=== PATIENT | male | born 1950 | race Two or more races ===

== ENCOUNTER 2024-11-23 20:41 | Inpatient (IN) | payer OTHER ==
[~2024-11-23] VITALS: Ht 165.1 cm; Wt 70.8 kg
[2024-11-23] MEDS ORDERED: AVAPRO300 MG PO (21:12)
[2024-11-23] MEDS ORDERED: CARDURA1 MG PO (21:12)
[2024-11-23] MEDS ORDERED: AMBIEN CR12.5 MG PO (21:13)
[2024-11-23] MEDS ORDERED: SINEMET 10-1001 EACH PO (21:13)
[2024-11-23] MEDS ORDERED: PROTONIX40 MG PO (21:13)
[2024-11-23] MEDS ORDERED: PROZAC40 MG PO (21:13)
--- NOTE | 2024-11-23 21:16 | NUR ---
PTE ALERTA Y ORIENTADO X3 EN COMPANIA DE FAMILIAR QUIEN REFIRE TRAER A PT POR SOB,INAPETENCIA, DOLOR ABDOMINAL. SE OBSERVA ABDOMEN DISTENDIDO. SATURANDO 93% SE REALIZA EKG. FAMILIAR REFIERE PTE HABERSE CAIDO Y GOLPEADO LA FRENTE. NIEGA PERDIDA DE CONOCIMIENTO
[2024-11-23] MEDS ORDERED: PIPERACILLIN/TAZOBACTAM SODIUM 3.375 GM VIAL IV ONE ×2 (22:30→22:39)
[2024-11-23] MEDS ORDERED: 0.9 % SODIUM CHLORIDE 1,000 ML IV ONE (22:30)
[2024-11-23] MEDS ORDERED: LEVALBUTEROL HCL 1.25 MG/3 ML SOLUTION IH ONE (22:30)
[2024-11-23] MEDS ORDERED: PANTOPRAZOLE SODIUM 40 MG/VIAL VIAL IV ONE (22:30)
[2024-11-23 23:07] LABS: HEMATOCRIT 33.5 % (39.0-48.0); HEMOGLOBIN 11.8 g/dL (13-16.00); MEAN CORPUSCULAR HEMOGLOBIN 32.7 pg (27.00-32.0); MEAN CORPUSCULAR HGB CONC 35.2 g/dl (32.0-36.0); PLATELET COUNT 210 K/uL (150-450); RED CELL DISTRIBUTION WIDTH 13.9 % (11.5-14.5)
--- NOTE | 2024-11-23 23:15 | NUR ---
SE EJECUTAN ORDENES MEDICAS EN CASTRO TOTALIDAD
[2024-11-23 23:20] LABS: INR 1.1; PARTIAL THROMBOPLASTIN TIME 32.3 SECONDS (22.0-34.0); PROTHROMBIN TIME 11.9 SECONDS (9.0-11.5)
[2024-11-23 23:24] LABS: ALBUMIN 3.1 gm/dL (3.4-5.0); BILIRUBIN TOTAL 0.37 mg/dL (0.3-1.2); CALCIUM 8.1 mg/dL (8.5-10.1); CREATININE SERUM 1.45 mg/dL (0.70-1.30); GFR 47.57; GLOBULINA 3.4 G/DL (2.4-3.5); POTASSIUM 4.85 mEq/L (3.5-5.1); TOTAL PROTEIN 6.5 gm/dL (6.4-8.2)
[2024-11-23] MEDS ORDERED: LEVALBUTEROL HCL 0.63 MG/3 ML SOLUTION IH ONE (23:58)
--- NOTE | 2024-11-24 00:01 | NUR ---
SE NOTIFICAN ABG Y TERAPIAS RESP A MR JAMESON.
[2024-11-24 00:21] LABS: PH,URINE 6.5 (5.0-8.0); URINE APPEARANCE Turbid; URINE BILIRRUBIN Negative (NEGATIVE); URINE BLOOD Trace; URINE COLOR Yellow; URINE GLUCOSE Negative (NEGATIVE); URINE KETONE Trace (NEGATIVE); URINE LEUKOCYTE Large; URINE NITRATE Negative; URINE PROTEIN 30 (NEGATIVE); URINE UROBILINOGEN 0.2 E.U./dl
[2024-11-24 00:25] LABS: URINE BACTERIA 8110.1 uL (0.0-1933); URINE EPITHELIAL CELLS 2.8 uL (0.0-38.8); URINE RBC 19.7 uL (0.0-20.8)
[2024-11-24 01:02] LABS: URINE CAST 0.14 uL (0.0-1.40); URINE WBC > 5548.3 uL (0.0-23.2)
[2024-11-24 03:02] LABS: ABG PH 7.436 (7.35-7.45); ABG PO2 82.9 mmHg (80-100); ABG pCO2 38.4 mmHg (35-45)
[2024-11-24 03:03] LABS: BASE EXCESS 1.2 mmol/l; BICARBONATE 25.3 mmol/l (23-25); Tco2 26.4 mmol/l; allen test SATISFACTORY; o2 32 %; puncture site RADIAL RIGHT
[2024-11-24 03:04] LABS: SaO2 96.5 %
[2024-11-24] MEDS ORDERED: OSELTAMIVIR PHOSPHATE 6 MG/1 ML PO STA (04:06)
[2024-11-24] MEDS ORDERED: LEVALBUTEROL HCL 0.63 MG/3 ML SOLUTION IH STA (04:07)
[2024-11-24] MEDS ORDERED: GUAIFENESIN 200 MG/10 ML BLIST.PACK PO STA (04:07)
[2024-11-24] MEDS ORDERED: LEVALBUTEROL HCL 0.63 MG/3 ML SOLUTION IH ONE (05:20)
[2024-11-24] MEDS ORDERED: LEVALBUTEROL HCL 0.63 MG/3 ML SOLUTION IH SCH (06:00)
--- NOTE | 2024-11-24 07:55 | NUR ---
SE RECIBE PACIENTE MASCULINO ALERTA Y ORIENTADO X3, EN CAMA K7 CON BARANDAS ELEVADAS. AREA DE VENOPUNCION PATENTE KIMBERLY DE EDEMA Y ENROJECOMIENTO. PENDIETE LA CONSULTA CON LA . SE LE DELROY EN TODO MOMENTO PRICVACIDAD Y SEGURIDAD.
[2024-11-24] MEDS ORDERED: ALBUTEROL SULFATE 3 ML/2.5 MG AMPUL.NEB IH ONE (10:23)
[2024-11-24] MEDS ORDERED: ACETAMINOPHEN 160MG/5 ML BLIST.PACK PO ONE (10:31)
[2024-11-24] MEDS ORDERED: CEFTRIAXONE SODIUM 2,000 MG in DEXTROSE 5 % IN WATER 100 ML IV SCH (11:52)
[2024-11-24] MEDS ORDERED: AZITHROMYCIN 500 MG VIAL IV SCH (11:52)
[2024-11-24] MEDS ORDERED: GUAIFENESIN/DEXTROMETHORPHAN 100MG/10ML BLIST.PACK PO SCH (11:53)
[2024-11-24] MEDS ORDERED: METHYLPREDNISOLONE SOD SUCC 40 MG VIAL IV SCH (11:54)
[2024-11-24] MEDS ORDERED: PATIENTS OWN MEDICATION (MEDICAMENTO EN PISO) PO SCH (11:56)
[2024-11-24] MEDS ORDERED: 0.9 % SODIUM CHLORIDE 1,000 ML IV SCH (12:00)
[2024-11-24] MEDS ORDERED: ACETAMINOPHEN 500 MG GEL..CAP PO PRN (12:00)
[2024-11-24] MEDS ORDERED: BENZONATATE 100 MG CAPSULE PO SCH (13:00)
[2024-11-24] MEDS ORDERED: LEVALBUTEROL HCL 1.25 MG/3 ML SOLUTION IH SCH (13:00)
[2024-11-24] MEDS ORDERED: CARBIDOPA/LEVODOPA 50/200 CR TABLET.SA PO SCH (13:00)
[2024-11-24] MEDS ORDERED: CEFTRIAXONE SODIUM 2,000 MG VIAL ONE (13:04)
[2024-11-24] MEDS ORDERED: AZITHROMYCIN 500 MG VIAL IV ONE (13:04)
[2024-11-24] MEDS ORDERED: GUAIFENESIN/DEXTROMETHORPHAN 100MG/10ML BLIST.PACK PO ONE (13:04)
[2024-11-24] MEDS ORDERED: METHYLPREDNISOLONE SOD SUCC 40 MG VIAL ONE (13:04)
[2024-11-24] MEDS ORDERED: BENZONATATE 100 MG CAPSULE PO ONE (13:36)
[2024-11-24 15:20] VITALS: BP 118/70; O2SAT 97
[2024-11-24] MEDS ORDERED: FAMOtidine 20 MG TABLET PO SCH (17:00)
[2024-11-24] MEDS ORDERED: FLUOXETINE HCL 20 MG CAPSULE PO SCH (17:00)
[2024-11-24] MEDS ORDERED: OSELTAMIVIR PHOSPHATE 75 MG CAPSULE PO SCH (17:00)
[2024-11-24 20:16] VITALS: O2SAT 91
[2024-11-24] MEDS ORDERED: FLUTICASONE PROPIONATE 50 MCG SPRAY NASAL SCH (21:00)
[2024-11-24] MEDS ORDERED: LORATADINE 10 MG TABLET PO SCH (21:00)
[2024-11-25] VITALS (8 sets, daily range): BP systolic 131–151; BP diastolic 69–73; O2SAT 94–96
[2024-11-25] MEDS ORDERED: OSELTAMIVIR PHOSPHATE 30MG CAP PO SCH (05:00)
[2024-11-25 08:38] LABS: MAGNESIUM 1.9 mg/dL (1.8-2.4); PHOSPHOROUS 2.4 mg/dL (2.5-4.9)
[2024-11-25 08:39] LABS: C-REACTIVE PROTEIN 14.3 MG/DL (0.00-0.29)
[2024-11-25] MEDS ORDERED: DOXAZOSIN MESYLATE 2 MG TABLET PO SCH (09:00)
[2024-11-25] MEDS ORDERED: ENOXAPARIN SODIUM 40 MG/0.4 ML SYRINGE SUBCUTANEO SCH (09:00)
[2024-11-25] MEDS ORDERED: BUPROPION HCL 150 MG TABLET.SA PO SCH (09:00)
[2024-11-25] MEDS ORDERED: CARBIDOPA/LEVODOPA 50/200 CR TABLET.SA PO SCH (17:00)
[2024-11-25] MEDS ORDERED: BUDESONIDE 0.5 MG/2 ML AMPUL.NEB IH SCH (21:00)
[2024-11-26] VITALS (7 sets, daily range): BP systolic 115–158; BP diastolic 63–75; O2SAT 94–99
[2024-11-26 07:31] LABS: HEMATOCRIT 31.3 % (39.0-48.0); MEAN CELL VOLUME 93.1 fL (80.0-100.00); MEAN CORPUSCULAR HEMOGLOBIN 31.2 pg (27.00-32.0); MEAN CORPUSCULAR HGB CONC 33.5 g/dl (32.0-36.0); PLATELET COUNT 209 K/uL (150-450); RED BLOOD COUNT 3.36 M/uL (4.00-6.00); RED CELL DISTRIBUTION WIDTH 13.5 % (11.5-14.5)
[2024-11-26 07:37] LABS: HEMOGLOBIN 10.5 g/dL (13-16.00)
[2024-11-26 07:58] LABS: CALCIUM 7.2 mg/dL (8.5-10.1); CREATININE SERUM 0.82 mg/dL (0.70-1.30); GFR 91.84; POTASSIUM 4.41 mEq/L (3.5-5.1)
[2024-11-26] MEDS ORDERED: DIATRIZOATE MEGLUMINE, SODIUM 30 ML BOTTLE PO STA (12:31)
[2024-11-26] MEDS ORDERED: ACETAMINOPHEN 160MG/5 ML BLIST.PACK PO PRN (15:30)
[2024-11-26] MEDS ORDERED: PIPERACILLIN/TAZOBACTAM SODIUM 3.375 GM in 0.9 % SODIUM CHLORIDE 100 ML IV SCH (18:00)
[2024-11-26] MEDS ORDERED: OSELTAMIVIR PHOSPHATE 6 MG/1 ML PO SCH (21:00)
[2024-11-26] MEDS ORDERED: FAMOTIDINE/PF 20 MG in 0.9 % SODIUM CHLORIDE 8 ML IV PUSH SCH (21:00)
[2024-11-27] VITALS (9 sets, daily range): BP systolic 150–179; BP diastolic 69–81; O2SAT 96–100
[2024-11-27] MEDS ORDERED: ENALAPRILAT DIHYDRATE 1.25 MG/ML VIAL IV PRN (02:30)
[2024-11-27] MEDS ORDERED: ENALAPRILAT DIHYDRATE 2.5 MG/2 ML VIAL IV ONE (05:07)
[2024-11-27] MEDS ORDERED: ENALAPRILAT DIHYDRATE 2.5 MG/2 ML VIAL IV PRN (05:15)
[2024-11-27 07:14] LABS: HEMATOCRIT 32.1 % (39.0-48.0); HEMOGLOBIN 10.6 g/dL (13-16.00); MEAN CELL VOLUME 94.2 fL (80.0-100.00); MEAN CORPUSCULAR HEMOGLOBIN 31.2 pg (27.00-32.0); MEAN CORPUSCULAR HGB CONC 33.1 g/dl (32.0-36.0); PLATELET COUNT 204 K/uL (150-450); RED CELL DISTRIBUTION WIDTH 13.4 % (11.5-14.5)
[2024-11-27 08:01] LABS: CALCIUM 7.1 mg/dL (8.5-10.1); CREATININE SERUM 0.91 mg/dL (0.70-1.30); GFR 81.44; POTASSIUM 3.96 mEq/L (3.5-5.1)
[2024-11-27] MEDS ORDERED: AVALIDE PO SCH (11:50)
[2024-11-28] VITALS (11 sets, daily range): BP systolic 170–185; BP diastolic 72–87; O2SAT 90–100
[2024-11-28] MEDS ORDERED: hydrALAZINE HCL 20 MG VIAL IV PRN (04:00)
[2024-11-28] MEDS ORDERED: PATIENTS OWN MEDICATION (MEDICAMENTO EN PISO) PO SCH (09:00)
[2024-11-28] MEDS ORDERED: AMLODIPINE BESYLATE 5 MG TABLET PO SCH (17:00)
[2024-11-28 20:05] LABS: ABG PH 7.449 (7.35-7.45); ABG pCO2 41.8 mmHg (35-45); BICARBONATE 28.4 mmol/l (23-25); SaO2 89.8 %; Tco2 29.7 mmol/l
[2024-11-28 20:53] LABS: ABG PO2 54.4 mmHg (80-100); allen test SATISFACTORY; o2 21 %; puncture site RADIAL LEFT
[2024-11-28] MEDS ORDERED: hydrALAZINE HCL 25 MG TABLET PO SCH (21:47)
[2024-11-29] VITALS (8 sets, daily range): BP systolic 163–173; BP diastolic 79–90; O2SAT 90–97
[2024-11-29 08:29] LABS: ALBUMIN 2.3 gm/dL (3.4-5.0); BILIRUBIN TOTAL 0.41 mg/dL (0.3-1.2); CALCIUM 7.3 mg/dL (8.5-10.1); CREATININE SERUM 0.78 mg/dL (0.70-1.30); GFR 97.3; GLOBULINA 2.8 G/DL (2.4-3.5); POTASSIUM 4.16 mEq/L (3.5-5.1); TOTAL PROTEIN 5.1 gm/dL (6.4-8.2)
[2024-11-29 08:33] LABS: HEMATOCRIT 29.7 % (39.0-48.0); MEAN CELL VOLUME 94.5 fL (80.0-100.00); MEAN CORPUSCULAR HGB CONC 33.8 g/dl (32.0-36.0); PLATELET COUNT 208 K/uL (150-450); RED BLOOD COUNT 3.14 M/uL (4.00-6.00); RED CELL DISTRIBUTION WIDTH 13.7 % (11.5-14.5)
[2024-11-29] MEDS ORDERED: IRBESARTAN 300 MG TABLET PO SCH (09:00)
[2024-11-29] MEDS ORDERED: METHYLPREDNISOLONE SOD SUCC 40 MG VIAL IV SCH (09:00)
[2024-11-29] MEDS ORDERED: hydrALAZINE HCL 25 MG TABLET PO SCH (17:00)
[2024-11-30] VITALS (7 sets, daily range): BP systolic 149–174; BP diastolic 76–89; O2SAT 95–97
[2024-11-30] MEDS ORDERED: METHYLPREDNISOLONE SOD SUCC 40 MG VIAL IV SCH (09:00)
[2024-11-30] MEDS ORDERED: IPRATROPIUM BROMIDE 0.5 MG/2.5 ML AMPUL.NEB IH SCH (17:00)
[2024-12-01] VITALS: BP 174/71; O2SAT 95
[2024-12-01 00:54] VITALS: O2SAT 97
[2024-12-01] MEDS ORDERED: hydrALAZINE HCL 25 MG TABLET PO SCH (01:00)
[2024-12-01 05:32] VITALS: O2SAT 96
[2024-12-01 06:46] LABS: HEMOGLOBIN 10.4 g/dL (13-16.00); MEAN CELL VOLUME 93.2 fL (80.0-100.00); MEAN CORPUSCULAR HEMOGLOBIN 32.4 pg (27.00-32.0); MEAN CORPUSCULAR HGB CONC 34.7 g/dl (32.0-36.0); RED BLOOD COUNT 3.21 M/uL (4.00-6.00); RED CELL DISTRIBUTION WIDTH 14.4 % (11.5-14.5)
[2024-12-01 07:58] LABS: ALBUMIN 2.4 gm/dL (3.4-5.0); BILIRUBIN TOTAL 0.49 mg/dL (0.3-1.2); CALCIUM 7.9 mg/dL (8.5-10.1); CREATININE SERUM 0.83 mg/dL (0.70-1.30); GFR 90.57; GLOBULINA 2.9 G/DL (2.4-3.5); POTASSIUM 4.05 mEq/L (3.5-5.1); TOTAL PROTEIN 5.3 gm/dL (6.4-8.2)
[2024-12-01 08:00] VITALS: BP 172/77; O2SAT 87
[2024-12-01 08:35] LABS: PLATELET COUNT 251 K/uL (150-450)
[2024-12-01] MEDS ORDERED: hydrALAZINE HCL 50 MG TABLET PO SCH (09:00)
[2024-12-01 10:23] LABS: ABG PH 7.443 (7.35-7.45); ABG pCO2 41.8 mmHg (35-45); BASE EXCESS 3.5 mmol/l; SaO2 90.3 %; Tco2 29.2 mmol/l
[2024-12-01 11:38] LABS: ABG PO2 55.9 mmHg (80-100)
[2024-12-01 11:39] LABS: allen test SATISFACTORY; o2 21 %; puncture site RADIAL LEFT
[2024-12-01 16:00] VITALS: BP 170/80; O2SAT 94
[2024-12-01] MEDS ORDERED: NIFEDIPINE 30 MG TAB.SA.OSM PO SCH (20:35)
[2024-12-01 21:54] VITALS: O2SAT 94
[2024-12-02] VITALS (9 sets, daily range): BP systolic 130–165; BP diastolic 63–79; O2SAT 90–100
[2024-12-03 00:10] VITALS: BP 145/71; O2SAT 98
[2024-12-03 00:16] VITALS: O2SAT 99
[2024-12-03 08:03] VITALS: BP 134/61; O2SAT 95
[2024-12-03 09:54] VITALS: O2SAT 96
[2024-12-03 14:20] VITALS: O2SAT 90
[2024-12-03] MEDS ORDERED: XOPENEX CO1.25 MG/0. IH (15:25)
[2024-12-03] MEDS ORDERED: LORATADINE10 MG PO (15:25)
[2024-12-03] MEDS ORDERED: IPRATROPIU0.2 MG/1 M IH (15:26)
[2024-12-03] MEDS ORDERED: AVAPRO300 MG PO (15:26)
[2024-12-03] MEDS ORDERED: CARBIDOPA-LEVO1 EA12 PO (15:26)
[2024-12-03] MEDS ORDERED: PROZAC20 MG PO (15:27)
[2024-12-03 17:00] VITALS: O2SAT 95
== END 2024-12-03 20:07 | disposition home or self-care (01) | DRG 194 ==
LOC: ER 20:44 → SURH 11-24 13:11
PROVIDERS: General Practice; Internal Medicine; Internal Medicine Infectious Disease; ADMIT Internal Medicine; ATTEND Internal Medicine
PROC: BW24ZZZ Computerized Tomography (CT Scan) of Chest and Abdomen (ICD-10-PCS; 2024-11-23)
PROC: BW21YZZ Computerized Tomography (CT Scan) of Abdomen and Pelvis using Other Contrast (ICD-10-PCS; 2024-11-23)
PROC: 4A12X4Z Monitoring of Cardiac Electrical Activity, External Approach (ICD-10-PCS; principal; 2024-11-24)
PROC: BW21ZZZ Computerized Tomography (CT Scan) of Abdomen and Pelvis (ICD-10-PCS; 2024-11-26)
PROC: B24BZZZ Ultrasonography of Heart with Aorta (ICD-10-PCS; 2024-11-28)
DX: J10.08 Influenza due to other identified influenza virus with other specified pneumonia (principal); N39.0 Urinary tract infection, site not specified; I10 Essential (primary) hypertension; G20.A1 Parkinson's disease without dyskinesia, without mention of fluctuations; E78.5 Hyperlipidemia, unspecified; I07.1 Rheumatic tricuspid insufficiency; E86.0 Dehydration

== ENCOUNTER 2025-04-01 22:34 | Inpatient (IN) | payer OTHER ==
[~2025-04-01] VITALS: Ht 152.4 cm; Wt 72.6 kg
[~2025-04-01 22:34] MED LIST: AMBIEN CR12.5 MG PO; AVAPRO300 MG PO; CARBIDOPA-LEVO1 EA12 PO; CARDURA1 MG PO; IPRATROPIU0.2 MG/1 M IH; LORATADINE10 MG PO; PROTONIX40 MG PO; PROZAC20 MG PO; PROZAC40 MG PO; SINEMET 10-1001 EACH PO; XOPENEX CO1.25 MG/0. IH
--- NOTE | 2025-04-01 22:49 | NUR ---
SE RECIBE PTE EN AMBULANCIA EN COMPANIA DE PARAMEDICOS ALERTA Y ORIENTADO X3, REFIEREN PTE SALIO POSITIVO A COVID-19 EN EL CARLEE DE HOY MEDIANTE PRUEBA DE SHANNAN. AL MOMENTO SAT 91%. SE REALIZA EKG Y SE PRESENTA A . SE UBICA PTE EN GELACIO #13 CONECTADO A MONITOR CARDIACO.
[2025-04-01] MEDS ORDERED: 0.9 % SODIUM CHLORIDE 1,000 ML IV SCH (23:00)
[2025-04-01] MEDS ORDERED: METHYLPREDNISOLONE SOD SUCC 125 MG VIAL IV ONE (23:00)
[2025-04-01] MEDS ORDERED: GUAIFENESIN/DEXTROMETHORPHAN 100MG/10ML BLIST.PACK PO ONE (23:15)
[2025-04-01 23:48] LABS: BASO % 0.4 % (0.1-1.2); EOS # 0.03 (0.04-0.54); EOS % 0.6 % (0.7-7.0); LYMPH # 0.50 (1.18-3.74); LYMPH % 10.0 % (19.3-53.1); MEAN PLATELET VOLUME 9.40 fl (9.4-12.4); MONO # 0.60 (0.24-0.82); MONO % 12.0 % (4.7-12.5); NEUT # 3.81 (1.56-6.13); NEUT % 76.6 % (34.0-71.1); RED CELL DISTRIBUTION WIDTH 13.2 % (11.6-14.4)
--- NOTE | 2025-04-01 23:51 | NUR ---
SE REALIZA LAB Y SE ADMINISTRA TX RUSSELL ORDEN MEDICA BAJO MEDIDAS ASEPTICAS. SE ORIENTA PTE QUIEN REFIERE ENTENDER Y ACEPTAR
[2025-04-01 23:55] LABS: ABG PH 7.389 (7.35-7.45); ABG PO2 62.6 mmHg (80-100); BICARBONATE 26.4 mmol/l (23-25)
[2025-04-02 00:12] LABS: ALT/SGPT 9.0 U/L (12-78); AST/SGOT 20.0 U/L (15-37); BILIRUBIN TOTAL 0.34 mg/dL (0.3-1.2); BUN CREA RATIO 17.0 (7.0-25.0); GFR 49.4; GLOBULINA 3.7 G/DL (2.4-3.5); GLUCOSE FASTING 106.0 mg/dL (65-100); OSMOLALITY SERUM 282.0 MOSM/KG (275-295)
[2025-04-02 00:16] LABS: CREATININE SERUM 1.4 mg/dL (0.70-1.30)
[2025-04-02 00:17] LABS: COVID-19 AG POSITIVE (NEGATIVE)
[2025-04-02 00:21] LABS: o2 21 %
[2025-04-02] MEDS ORDERED: ALBUTEROL SULFATE 3 ML/2.5 MG AMPUL.NEB IH STA (03:10)
[2025-04-02] MEDS ORDERED: ALBUTEROL SULFATE 3 ML/2.5 MG AMPUL.NEB IH SCH (04:00)
--- NOTE | 2025-04-02 08:20 | NUR ---
SE RECIBE A PACIENTE ALERTA Y ORIENTADO X3 CONECTADO A OXIMETRIA CONTINUA. PACIENTE CON VENTURY MASK AL 35%. CANALIZADO CON #20 EN RT ARM, PATENTE, KIMBERLY DE EDEMA Y ERITEMA Y BAJANDO 0.9NSS A 100ML/HR. PENDIENTE A LECTURA DE CT Y CONSULTA CON MEDICINA INTERNA.
[2025-04-02 09:08] VITALS: BP 133/70; O2SAT 94
--- NOTE | 2025-04-02 15:42 | NUR ---
SE RECIBE PACIENTE MASCULINO 75 Y/O EL MISMO EN GELACIO POSICION MAS BAJA CON BARANDAS DE SEGURIDAD ELEVADAS X4. EL BAJO MONITOREO CARDIACO Y OXIMETRIA DE PULSO. EL MISMO CON MASCARILLA VENTURY MASK AL 35%. CANALIZADO CON #20 EN MANO DERECHA KIMBERLY DE EDEMA Y ERITEMA. ABDOMEN DEPRESIBLE AL TACTO CON PERISTALSIS PRESENTE. EXTEMIDADES KIMBERLY DE EDEMA.
[2025-04-02] MEDS ORDERED: IPRATROPIUM BROMIDE 0.5 MG/2.5 ML AMPUL.NEB IH SCH (17:39)
[2025-04-02] MEDS ORDERED: LEVALBUTEROL HCL 1.25 MG/3 ML SOLUTION IH SCH (17:39)
[2025-04-02] MEDS ORDERED: CEFTRIAXONE SODIUM 2,000 MG in 0.9 % SODIUM CHLORIDE 100 ML IV SCH (17:44)
[2025-04-02] MEDS ORDERED: ENOXAPARIN SODIUM 40 MG/0.4 ML SYRINGE SUBCUTANEO SCH (17:45)
[2025-04-02] MEDS ORDERED: DEXAMETHASONE SODIUM PHOSPHATE 4 MG/ML VIAL IV SCH (17:45)
[2025-04-02] MEDS ORDERED: AZITHROMYCIN 500 MG in DEXTROSE 5 % IN WATER 250 ML IV SCH (17:45)
[2025-04-02] MEDS ORDERED: 0.9 % SODIUM CHLORIDE 1,000 ML IV SCH (17:45)
[2025-04-02] MEDS ORDERED: FAMOTIDINE/PF 20 MG in 0.9 % SODIUM CHLORIDE 8 ML IV PUSH SCH (17:46)
[2025-04-02] MEDS ORDERED: ACETAMINOPHEN 500 MG GEL..CAP PO PRN (18:00)
[2025-04-02] MEDS ORDERED: CARBIDOPA/LEVODOPA 50/200 CR TABLET.SA PO SCH (21:00)
[2025-04-02] MEDS ORDERED: AZITHROMYCIN 500 MG VIAL IV SCH (21:00)
[2025-04-02 21:03] LABS: INR 1.05
[2025-04-02 21:05] LABS: D DIMER 1.22 MG/L
[2025-04-02 21:13] LABS: LDH 170.0 U/L (87-241)
[2025-04-02 22:01] VITALS: BP 157/70; O2SAT 100
[2025-04-03 00:47] LABS: URINE APPEARANCE Clear; URINE BILIRRUBIN Negative (NEGATIVE); URINE BLOOD Negative; URINE COLOR Yellow; URINE GLUCOSE Negative (NEGATIVE); URINE KETONE Negative (NEGATIVE); URINE LEUKOCYTE Negative; URINE NITRATE Negative; URINE PROTEIN Negative (NEGATIVE); URINE UROBILINOGEN 0.2 E.U./dl
[2025-04-03 00:52] LABS: URINE BACTERIA 1.1 uL (0.0-1933); URINE CAST 0.00 uL (0.0-1.40); URINE EPITHELIAL CELLS 0.3 uL (0.0-38.8); URINE RBC 0.7 uL (0.0-20.8); URINE WBC 0.1 uL (0.0-23.2)
[2025-04-03 01:33] VITALS: BP 132/70
[2025-04-03 08:00] VITALS: BP 130/72; O2SAT 96
[2025-04-03] MEDS ORDERED: IRBESARTAN 300 MG TABLET PO SCH (09:00)
[2025-04-03] MEDS ORDERED: REMDESIVIR 100 MG VIAL IV ONE (14:00)
[2025-04-03 16:03] VITALS: O2SAT 98
[2025-04-03 16:49] VITALS: BP 166/76; O2SAT 93
[2025-04-03 19:29] VITALS: O2SAT 99
[2025-04-03 23:46] VITALS: O2SAT 98
[2025-04-04] VITALS (9 sets, daily range): BP systolic 150–161; BP diastolic 76–84; O2SAT 96–98
[2025-04-04 08:19] LABS: BUN CREA RATIO 25.0 (7.0-25.0); CREATININE SERUM 0.85 mg/dL (0.70-1.30); GFR 87.87; GLUCOSE FASTING 89.0 mg/dL (65-100); OSMOLALITY SERUM 286.0 MOSM/KG (275-295)
[2025-04-04] MEDS ORDERED: DEXAMETHASONE SODIUM PHOSPHATE 4 MG/ML VIAL IV SCH (09:00)
[2025-04-04] MEDS ORDERED: KETOROLAC TROMETHAMINE 30 MG VIAL IV NR (14:00)
[2025-04-04] MEDS ORDERED: REMDESIVIR 100 MG VIAL IV SCH (17:00)
[2025-04-04] MEDS ORDERED: KETOROLAC TROMETHAMINE 30 MG VIAL IV SCH (21:00)
[2025-04-05] VITALS (7 sets, daily range): BP systolic 150–165; BP diastolic 70–79; O2SAT 94–98
[2025-04-06] VITALS (8 sets, daily range): BP systolic 168–172; BP diastolic 70–73; O2SAT 90–98
[2025-04-06] MEDS ORDERED: AMLODIPINE BESYLATE 2.5 MG TABLET PO SCH (09:04)
[2025-04-06 10:17] LABS: ABG PH 7.418 (7.35-7.45); ABG PO2 154.0 mmHg (80-100); BICARBONATE 26.5 mmol/l (23-25)
[2025-04-06 10:22] LABS: o2 32 %
[2025-04-06] MEDS ORDERED: PNEUMOC 20-VAL CONJ-DIP CRM/PF 0.5 ML SYRINGE IM NR (12:40)
[2025-04-07 00:01] VITALS: O2SAT 90
[2025-04-07 02:13] VITALS: BP 154/70; O2SAT 97
[2025-04-07 04:55] VITALS: O2SAT 97
[2025-04-07 05:50] LABS: BASO % 0.7 % (0.1-1.2); EOS # 0.00 (0.04-0.54); EOS % 0.0 % (0.7-7.0); LYMPH # 0.88 (1.18-3.74); LYMPH % 8.1 % (19.3-53.1); MEAN PLATELET VOLUME 9.70 fl (9.4-12.4); MONO # 0.80 (0.24-0.82); MONO % 7.3 % (4.7-12.5); NEUT # 8.41 (1.56-6.13); NEUT % 77.3 % (34.0-71.1); RED CELL DISTRIBUTION WIDTH 12.8 % (11.6-14.4)
[2025-04-07 06:41] LABS: BUN CREA RATIO 25.0 (7.0-25.0); CREATININE SERUM 0.92 mg/dL (0.70-1.30); GFR 80.2; GLUCOSE FASTING 104.0 mg/dL (65-100); OSMOLALITY SERUM 278.0 MOSM/KG (275-295)
[2025-04-07 07:51] VITALS: BP 169/73
[2025-04-07 10:20] VITALS: O2SAT 98
[2025-04-07 14:16] VITALS: O2SAT 90
== END 2025-04-07 15:04 | disposition home or self-care (01) | DRG 178 ==
LOC: ER 22:34 → MEDJ 04-02 18:15
PROVIDERS: General Practice; ADMIT Internal Medicine; ATTEND Internal Medicine
PROC: BW24ZZZ Computerized Tomography (CT Scan) of Chest and Abdomen (ICD-10-PCS; 2025-04-01)
PROC: B54CZZZ Ultrasonography of Left Lower Extremity Veins (ICD-10-PCS; 2025-04-01)
PROC: 4A12X4Z Monitoring of Cardiac Electrical Activity, External Approach (ICD-10-PCS; 2025-04-03)
PROC: 3E0F7GC Introduction of Other Therapeutic Substance into Respiratory Tract, Via Natural or Artificial Opening (ICD-10-PCS; 2025-04-03)
PROC: XW033E5 Introduction of Remdesivir Anti-infective into Peripheral Vein, Percutaneous Approach, New Technology Group 5 (ICD-10-PCS; principal; 2025-04-06)
DX: U07.1 COVID-19 (principal); N17.9 Acute kidney failure, unspecified; R09.02 Hypoxemia; G20.A1 Parkinson's disease without dyskinesia, without mention of fluctuations; I10 Essential (primary) hypertension